=== PATIENT | female | born 1975 | race Caucasian/White ===

== ENCOUNTER 2020-04-13 16:10 | Outpatient (CLI) | payer BC, SELFPAY ==
--- NOTE | 2020-04-13 16:24 | US_ITS ---
WS: [id number] TRANSABDOMINAL PELVIC AND TRANSVAGINAL PELVIC ULTRASOUND HISTORY: DYSFUNCTIONAL UTERINE BLEEDING COMPARISON: None available. Uterus: 10.3 cm x 4.3 cm x 3.9 cm. Mild enlargement of the uterus. Uterus is anteverted. No fibroid o r mass. Endometrium: 1.7 cm. Mildly thickened endometrium with mild heterogeneity. There are a few small cyst ic areas scattered within the endometrium. Right ovary: 3.3 cm x 2.0 cm x 2.4 cm. Normal size RIGHT ovary. RIGHT ovary contains a cyst measuring 3.7 x 2.4 x 2.5 cm. No solid mass. Left ovary: 2.5 cm x 1.7 cm x 1.7 cm. Normal size and echogenicity. No mass. No free fluid. US/US pelvic with transvaginal IMPRESSION: 1. Very minimally thickened heterogeneous endometrium. Polyp or early neoplasm not excluded. May be due to the phase of the menstrual cycle. Hysteroscopy wit h biopsy or 3 month follow-up is recommended for further evaluation of the endo metrium. 2. Simple RIGHT ovarian cyst with a maximum diameter 3.7 cm.
== END 2020-04-13 16:11 | disposition home or self-care (01) ==
LOC: RAD 16:18
PROVIDERS: PCP Nurse Practitioner Family; Visit Provider Nurse Practitioner Family
DX: N93.8 Other specified abnormal uterine and vaginal bleeding (principal); N83.201 Unspecified ovarian cyst, right side
CPT/HCPCS: 76830; 76856

== ENCOUNTER → 2020-05-16 10:51 | Outpatient (BNVA) | payer BC, SELFPAY | PROVIDERS: PCP Nurse Practitioner Family; Visit Provider Obstetrics & Gynecology | DX: N93.9 Abnormal uterine and vaginal bleeding, unspecified (principal); N83.201 Unspecified ovarian cyst, right side | CPT/HCPCS: 76830 ==

== ENCOUNTER → 2020-07-03 08:23 | Outpatient (BNVA) | payer BC, SELFPAY | PROVIDERS: PCP Nurse Practitioner Family; Visit Provider Internal Medicine | DX: N93.9 Abnormal uterine and vaginal bleeding, unspecified (principal) | CPT/HCPCS: 87635 ==

== ENCOUNTER 2020-07-06 05:51 | Day surgery (SDC) | payer BC, SELFPAY ==
[2020-07-03 10:07] VITALS: BMI 32.5
--- NOTE | 2020-07-03 10:31 | ANES.PREANE2 ---
Pre-Anesthetic Assessment Pre-Anesthetic Assessment: Height/Weight: Height 1.57 m Weight 80.739 kg Preop Diagnosis: Endometrial polyp, abnormal uterine bleeding Proposed Procedure: Operation Date: 07/06/20 07:00 Proposed Procedures p Hysteroscopy with polpectomy 67845 [id number] N84.0(Not Applicable) - Imani Snyder MD s Dilation And Curettage (D&C)(Not Applicable) - Imani Snyder MD Familial anesthetic complications: Broke out in hives after being given something pre-operatively 17 years ago - unable to identify agent Social: Social History: No alcohol and No tobacco Exam: Pre-Anes Outpt Exam: alert, oriented x 3, clear to auscultation bilaterally and regular rate & rhythm Airway: Cervical ROM: WNL MP: 4 Dentition: Full Anesthetic Plan: ASA status: 1 Anesthesia: General Risk of > 500 ml blood loss (7ml/kg in children): No Other Pertinent Information: No blood, accepts EPO and cell saver (doesn't have to be in continuity) and albumin PFSH Anesthesia PFSH: Medical History Anxiety Diagnosed in 2008 and well-controlled with Zoloft at this time. This is managed by her primary care provider Carol Stewart. Endometrial polyp No pertinent past medical history Denies history of: Hypertension, hypercholesterolemia, diabetes, heart, lung, liver, kidney, thyroid problems, DVT/PE, bleeding or clotting disorders. PCP: Carol Stewart, [facility] Refusal of blood transfusions as patient is Muslim 06/26/2020--patient will not accept red blood cells as she is a Muslim ------> states that she can except albumin, erythropoietin, immunoglobulins and all clotting factors including plasma Surgical History S/P tubal ligation 2003---mini laparotomy-suprapubic incision Family History Father Diabetes Hypertension Stroke Thyroid condition Heart disease Mother Hypertension Heart disease Grandmother Uterine cancer Patnernal--either ovarian or uterine, details unknown Denies family history of Colon cancer Hyperlipidemia Breast cancer Social History Smoking and tobacco status: never smoked Alcohol intake: unknown Female Reproductive History: Date of last menstrual period: 06/12/20 Data Anesthesia Cardiac Studies: No Data to Display
[2020-07-03 10:44] LABS: Basophils % 0.5 %; Eosinophils # 0.1 10^3/uL (0.0-0.8); Eosinophils % 1.8 %; Hematocrit 42.5 % (37.0-47.0); Hemoglobin 13.6 g/dL (11.5-15.3); Lymphocytes # 1.6 10^3/uL (0.8-4.8); Lymphocytes % 26.4 %; Mean Corpuscular Hemoglobin 28.9 pg (28.0-34.0); Mean Corpuscular Volume 90.4 fL (81-99); Mean Platelet Volume 9.2 fL (7.4-10.4); Monocytes # 0.3 10^3/uL (0.2-0.9); Monocytes % 5.7 %; Neutrophils # 3.88 10^3/uL (1.8-7.7); Neutrophils % 65.3 %; Nucleated Red Blood Cells % 0 %; Platelet Count 211 10^3/cmm (130-400); Red Cell Distribution Width 12.1 % (12.1-15.1)
[2020-07-06] VITALS (10 sets, daily range): BP systolic 101–123; BP diastolic 65–82; PULSE 77–93; RESP 15–18; TEMP 36.3–37.1; O2SAT 94–98
[2020-07-06] MEDS: sodium chloride 0.9% 1,000 ML 30 ML IV (06:10)
--- NOTE | 2020-07-06 06:37 | P.ANESUD_ITS ---
Pre-Anesthetic Update Pre-Anesthetic Assessment: Date of Surgery/Procedure: 07/06/20 Preop Brittny gnosis: Endometrial polyp, abnormal uterine bleeding Proposed Procedure: Operation Date: 07/06/20 07:00 Proposed Procedures p Hysteroscopy with polpectomy [id number] N84.0(Not Applicable) - Imani Cook MD s Dilation And Curettage (D&C)(Not Applicable) - Imani Snyder MD Any changes to Pre-Anesthetic Assessment?: No Last Intake: Intake Last Liquid Date 07/05/20 Last Liquid Time 21:00 Last Solid Date 07/05/20 Last Solid Time 21:00 Vitals: Temperature 97.3 F L 07/06/20 06:01 Temperature Source Tympanic 07/06/20 06:01 Pulse Rate 77 07/06/20 06:01 Respiratory Rate 18 07/06/20 06:01 Blood Pressure 123/78 07/06/20 06:01 Blood Pressure Ana n 93 07/06/20 06:01 Pulse Oximetry 97 07/06/20 06:01 Oxygen Delivery Me thod 07/06/20 06:01 Exam: Pre-Anes Outpt Exam: alert, oriented x 3, clear to auscultation bilaterally and regular rate & rhythm Cardiac Studies: No Data to Display
--- NOTE | 2020-07-06 06:56 | W.PM.OPSUD ---
Surgery/Procedure H&P Update DATE OF PROCEDURE: July 06, 2020 DATE H&P PERFORMED: 06/26/20 H&P UPDATE INFORMATION: I have reviewed H&P completed within last 30 days, I have examined patient prior to procedure, No changes to prior documentation and H&P is in [facility] [place] [facility] EMR on date indicated PREOP DIAGNOSIS: Endometrial polyp, abnormal uterine bleeding PLANNED PROCEDURE: Operation Date: 07/06/20 07:00 Proposed Procedures p Hysteroscopy with polpectomy [id number] N84.0(Not Applicable) - Imani Snyder MD s Dilation And Curettage (D&C)(Not Applicable) - Imani Snyder MD
[2020-07-06 07:01] LABS: OR HCG Qualitative Urine Negative (Negative)
[2020-07-06] MEDS: silver nitrate applicator 4 EACH (07:55)
--- NOTE | 2020-07-06 08:22 | P.OP_ITS ---
Operative Report Date of procedure: July 06, 2020 OPERATIVE REPORT Date of surgery: 07/06/2020 Date of dictation:07/06/2020 Preoperative diagnosis: Endometrial polyp, abnormal uterine bleeding Postoperative diagnosis/findings: Examination under anesthesia-8 to 9-week size anteverted uterus, no adnexal masses, grade 2 uterine descent, grade 1 cystocele, grade 0-1 rectocele. On hysteroscopy sessile endometrial polyps, no endometrial or endocervical abnormalities, bilateral ostia visualized. Procedure done: Hysteroscopy, D&C Specimens removed/disposition of specimens: Endometrial curettings sent to pathology Surgeon: Dr. Imani Haider cardiovascular physician assistant: Catrachita Anesthesia: Laryngeal mask anesthesia Estimated blood loss: Less than 25 ml Intravenous fluids: 500 mL of LR Urine output: 30 mL of clear urine via straight catheter prior to start of procedure Medications: As per anesthesia records Complications: None, patient was taken to the recovery room in a stable condition PROCEDURE: After consent was obtained patient was taken to the operating room where she is placed under laryngeal mask anesthesia without any difficulty. She was placed supine on the table in lithotomy position. Care was taken to ensure that her legs were well positioned to avoid pressure points. She was then prepped and draped in the usual sterile fashion. Exam under anesthesia was done at this time which showed a 8 to 9-week size anteverted uterus, no adnexal masses, grade 2 uterine descent, grade 1 cystocele, grade 0-1 rectocele.. The weighted speculum and lateral vaginal wall retractors were placed in the vagina and the cervix was visualized. The cervix appeared normal with a large ectropion. The cervix was dilated to a 15 Loya dilator without any difficulty. This allowed placement of a 3 mm hysteroscope into the uterine cavity without any difficulty. Once the hysteroscope was placed in the uterine cavity, the endocervical canal was visualized and appeared normal. The endometrium was visualized well and appeared normal except for fluffy tissue and what appeared to be sessile polyps along the right lateral wall of the uterus.bilateral ostia were visualized. The hysteroscope was withdrawn and endometrial curettings were performed with a sharp curette. The endometrial curettings were sent to pathology. Hysteroscope was replaced and the sessile polyps are no longer visualized. No active bleeding was noted from the cervix. Tenaculum was removed and some bleeding was noted from tenaculum site and silver nitrate was used to achieve hemostasis. Good hemostasis was achieved. All instruments were removed from the vagina. Patient was cleaned well and anesthesia was reversed without any dif ficulty. She was taken to the recovery in a stable condition. FOLLOW UP: Follow-up in 2 weeks and 6 weeks with surgeon MEDICATION ON DISCHARGE: Colace 100 mg by mouth every 12 hours when necessary constipation, 30 tablets, no refills Ibuprofen 800 mg by mouth every 8 hours when necessary pain, 30 tablets, no refills. [place] 5/325 mg 1 tablet by mouth every 6 hours when necessary pain,5 tablets, no refills Continue other home medication DISPOSITION: Home in a stable condition Pre-op Diagnosis: Endometrial polyp, abnormal uterine bleeding
--- NOTE | 2020-07-06 09:19 | ANE.PACU2 ---
Inpatient post-anesthesia follow up: Airway intact: Yes Vital signs: Temperature 98.0 F Pulse Rate 79 Respiratory Rate 18 Blood Pressure 101/65 Pulse Oximetry 96 Oxygen Delivery Me thod Room Air Oxygen Flow Rate 8 Fraction of Inspir ed Oxygen Hydration adequate: Yes Nausea and vomiting: No Pain level: 1 Mental status: Baseline
== END 2020-07-06 09:48 | disposition home or self-care (01) ==
PROVIDERS: PCP Nurse Practitioner Family; Visit Provider Obstetrics & Gynecology
PROC: 0UJD8ZZ Inspection of Uterus and Cervix, Via Natural or Artificial Opening Endoscopic (ICD-10-PCS; CPT 58555; principal; 2020-07-06 07:00)
PROC: (CPT 58120; 2020-07-06 07:00)
DX: N84.0 Polyp of corpus uteri (principal); N81.10 Cystocele, unspecified
CPT/HCPCS: 58558; 12345; 84703; 85025; 88305; J2405; J2704; J3010; J7030

== ENCOUNTER → 2020-07-24 09:39 | Outpatient (BNVA) | payer BC, SELFPAY | PROVIDERS: PCP Nurse Practitioner Family; Visit Provider Obstetrics & Gynecology | DX: R30.0 Dysuria (principal) | CPT/HCPCS: 80053 ==